=== PATIENT | female | born 1980 | race American Indian/Alaskan Native ===

== ENCOUNTER 2017-11-04 09:39 | Outpatient (CLI) | payer OTHER ==
--- NOTE | 2017-11-04 10:23 | XRay Report ---
RIGHT ELBOW, 2 VIEWS History: Right elbow pain. Findings: No comparison. 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 There is no obvious evidence for loosening or displacement. Mild to moderate osteoarthritic changes are identified at the right elbow. No evidence for fracture, malalignment or joint effusion. Impression: Surgical changes as described. Osteoarthritis. No acute process is noted on x-ray.
== END 2017-11-04 09:40 | disposition home or self-care (01) ==
LOC: XRAY 09:39
PROVIDERS: ATTEND Internal Medicine
DX: M19.021 Primary osteoarthritis, right elbow (principal)